=== PATIENT | male | born 1975 | race Caucasian/White ===

== ENCOUNTER 2017-02-07 16:15 | Emergency (ER) | payer OTHER ==
[~2017-02-07] VITALS: Ht 193 cm; Wt 152.2 kg
[2017-02-07] MEDS ORDERED: NAPROSYN500 MG PO (19:37)
[2017-02-07] MEDS ORDERED: FLEXERIL10 MG PO (19:37)
[2017-02-07 19:46] VITALS: BP 138/84
== END 2017-02-07 19:46 | disposition home or self-care (01) ==
LOC: EME 16:15
DX: S40.012A Contusion of left shoulder, initial encounter (principal); R51 Headache; M54.2 Cervicalgia; V49.40XA Driver injured in collision with unspecified motor vehicles in traffic accident, initial encounter; I10 Essential (primary) hypertension; E11.9 Type 2 diabetes mellitus without complications
CPT/HCPCS: 70450; 72125; 73030; 99281; 99284